=== PATIENT | female | born 1960 ===

== ENCOUNTER 2023-03-05 19:44 | Emergency (ER) | payer BC, SELFPAY ==
--- NOTE | ~2023-03-05 | XR_ITS ---
EXAMINATION: XR FOOT, LEFT CLINICAL INFORMATION: Toe injury. COMPARISON: None available. TECHNIQUE: AP, lateral, and oblique views of the left foot. FINDINGS: No fracture. No dislocation. Metallic band over the mid second toe obscuring detail. XR/XR foot LT min 3V IMPRESSION: Normal left foot.
[2023-03-05 21:05] VITALS: BP 142/79; PULSE 72; TEMP 36.8; O2SAT 99; BMI 39.1
--- NOTE | 2023-03-05 23:00 | ED.LOWEXIN ---
HPI - Extremity Injury (Lower) General Chief Complaint: Extremity Injury, Lower Stated Complaint: left foot toe injury Time Seen by Provider: 03/05/23 22:47 Source: patient Mode of arrival: ambulatory Limitations: no limitations History of Present Illness HPI Narrative: patient comes to the emergency room complaining of an avulsed nail on the 3rd toe on the left foot. Patient states that she was trying to prevent and massage stable from falling into the floor, patient but her foot in between the table and the floor. Patient states that the toenail avulsed and is hanging by minimal piece of skin. Related Data Allergies Allergy/AdvReac Type Severity Reaction Status Date / Time meperidine [From DEMEROL] Allergy Severe HYPOTENSION Unverified 06/16/20 14:38 lactulose [Lactulose] Allergy Mild GI UPSET Unverified 06/16/20 14:38 adhesive [ADHESIVE] Allergy Unknown BLISTERS Unverified 06/16/20 14:38 nitroglycerin AdvReac Unknown low bp Verified 08/03/16 00:00 Review of Systems Review of Systems: Constitutional : No Weight loss, No Fever, No Chills, No Night Sweats, No Fatigue, No Malaise ENT/Mouth : No Hearing loss, No Ear Pain, No Nasal Congestion, No Sinus Pain, No Hoarseness, No sore throat, No Rhinorrhea, No Swallowing Difficulty Eyes: No Eye Pain, No Swelling, No Redness, No Foreign Body, No Discharge, No Vision Changes Cardiovascular : No Chest Pain, No SOB, No Dyspnea on Exertion, No Orthopnea, No Edema, No Palpitations Respiratory : No Cough, No Sputum, No Wheezing, No Smoke Exposure, No Dyspnea Gastrointestinal : No Nausea, No Vomiting, No Diarrhea, No Constipation, No abdominal Pain, No Hematochezia, No Melena Genitourinary : no irregular bleeding, No Dysuria, No Urinary Frequency, No Hematuria, No Urinary Incontinence, No Urgency, No Flank Pain, No Urinary Flow Changes, No Hesitancy Musculoskeletal : No joint pain, No Myalgias, No Joint Swelling Skin : Complaining of a nail avulsion 3rd toe of the left foot Neuro : No Weakness, No Numbness, No Paresthesias, No Loss of Consciousness, No Dizziness, No Headache Psych : No Anxiety/Panic, No Depression, No SI/HI/AH/VH, No Social Issues, Heme/Lymph: No Bruising, No Bleeding,No Lymphadenopathy Endocrine : No Polyuria, No Polydipsia, No Temperature Intolerance [facility] Social History Social History Advance Directives: No Advance Directives Information Provided: Yes Physical Exam Vital Signs: Vital Signs: Last Vital Signs Temp 98.3 F 03/05/23 21:05 Pulse 72 03/05/23 21:05 BP 142/79 H 03/05/23 21:05 Pulse Ox 99 03/05/23 21:05 O2 Del Method Room Air 03/05/23 21:05 BMI result Body Mass Index 39.1 Const: Other: Appearance: Alert. Oriented X3. No acute distress. Eyes: Pupils equal, round and reactive to light. ENT: Pharynx normal. Neck: Normal inspection. Neck supple. No lymph nodes noted. No crepitus CVS: Normal heart rate and rhythm. Pulses normal. Normal S1 and S2 Respiratory: No respiratory distress. Breath sounds normal. No Wheezing. No rales Abdomen: Soft and nontender. No rigidity. No distention. Skin: Skin warm and dry. 3rd toe nail avulsed Extremities: No lower extremity edema. No Lacerations. No Rash Neuro: Oriented X 3. No motor deficit. No sensory deficit. Moving all extremities. No slurred speech. CN 2 through 12 grossly intact Psych: calm, cooperative, normal affect Medical Decision Making Medical Decision Making MDM Narrative: - foot x-ray negative for fracture - nail Of the 3rd toenail on the left foot is avulsed and partially hanging over proximal part. - I discussed with the patient that the nail will fall off, we cleaned off the toe for the patient, Discharge Plan Discharge Clinical Impression: Toenail avulsion Patient Disposition: Home, Self-Care Instructions: Nail Avulsion (ED) Additional Instructions: Please follow-up with your primary care physician tomorrow. If you have any worsening or new symptoms, please return to the emergency room or call 911
[2023-03-05 23:32] VITALS: BP 146/77; PULSE 64; RESP 18; TEMP 36.6; O2SAT 99
--- NOTE | 2023-03-05 23:33 | MHC.EDTECH ---
This tech cleaned patients 3rd digit toe on the left side with betadine and saline per request. Patient tolerated procedure well and band-aid was applied. Vitals were taken. Rn aware
== END 2023-03-05 23:35 | disposition home or self-care (01) ==
PROVIDERS: Emergency Provider Emergency Medicine; PCP Family Medicine
DX: S91.205A Unspecified open wound of left lesser toe(s) with damage to nail, initial encounter (principal); W20.8XXA Other cause of strike by thrown, projected or falling object, initial encounter; Y93.9 Activity, unspecified; Y92.9 Unspecified place or not applicable; Y99.9 Unspecified external cause status
CPT/HCPCS: 73630; 99283